=== PATIENT | male | born 1980 | race Caucasian/White ===

== ENCOUNTER 2018-07-11 15:53 | Emergency (ER) | payer SELFPAY ==
[2018-07-11] MEDS ORDERED: Lidocaine 1% w/Epinephrine 1:100K 20 ML VIAL ONE (16:13)
[2018-07-11] MEDS ORDERED: Adacel (T-DAP) 0.5 ML SYRINGE ONE (16:13)
[2018-07-11] MEDS ORDERED: Bacitracin Zinc 1 Packet ONE (17:01)
== END 2018-07-11 17:12 | disposition home or self-care (01) ==
LOC: ERS 15:53
DX: S61.412A Laceration without foreign body of left hand, initial encounter (principal); F31.9 Bipolar disorder, unspecified; F17.210 Nicotine dependence, cigarettes, uncomplicated; Z23 Encounter for immunization; Z79.899 Other long term (current) drug therapy; W25.XXXA Contact with sharp glass, initial encounter
CPT/HCPCS: 12001; 90471; 90715; J2001

== ENCOUNTER 2019-08-29 23:45 | Emergency (ER) | payer SELFPAY ==
[2019-08-30 00:08] LABS: #Eosinphils 0.1 thou/uL (0.0-0.7); #Lymphocytes 2.9 thou/uL (1.20-3.40); #Monocytes 0.5 thou/uL (0.11-0.59); #Neutrophils 3.5 thou/uL (1.40-6.50); %Basophils 0.7 % (0.0-1.0); %Eosinophils 1.6 % (0.0-10.0); %Lymphocytes 40.5 % (21.0-51.0); %Neutrophils 50.2 % (42.0-75.0); Hemoglobin 16.5 g/dL (14.0-18.0); Mean Corpuscular HGB CONC 33.5 g/dL (32.0-36.0); Mean Corpuscular Volume 95.6 fL (78.0-98.0); Mean Platelet Volume 8.9 fL (7.4-10.4); Platelet Count 131 thou/uL (130-400); RBC Distribution Width 11.2 % (11.5-14.5); Red Blood Cell (RBC) Count 5.15 mill/uL (4.70-6.10)
[2019-08-30 00:29] LABS: Acetaminophen Less than 6.0 mcg/mL (10.0-30.0); Alcohol Less than 10 mg/dL (Less than 10); Salicylate Less than 8.0 mg/dL (15.0-30.0)
[2019-08-30 00:30] LABS: ALT (SGPT) 25 U/L (8-55); AST (SGOT) 46 U/L (5-34); Albumin 4.1 g/dL (3.5-5.0); Alkaline Phosphatase 75 U/L (40-110); Anion Gap 11 mmol/L (10-20); BUN (Urea Nitrogen) 17 mg/dL (8.9-20.6); Bilirubin, Total 0.4 mg/dL (0.2-1.2); Calc. Creatinine Clearance 0 mL/min (70-130); Calcium 9.3 mg/dL (7.8-10.44); Carbon Dioxide 32 mmol/L (22-29); Chloride 100 mmol/L (98-107); Estimated GFR-MDRD 72; Globulin 3.4 g/dL (2.4-3.5); Glucose 126 mg/dL (70-105); Potassium 3.6 mmol/L (3.5-5.1); Protein, Total 7.5 g/dL (6.0-8.3); Sodium 139 mmol/L (136-145)
[2019-08-30 02:52] LABS: Amphetamine Detected (NotDetected); Cocaine Metabolite Screen Not Detected (NotDetected); Medtox Reader # READER 1; Methamphetamine Detected (NotDetected); Opiate Screen Not Detected (NotDetected); Phencyclidine (PCP) Not Detected (NotDetected); THC/Cannabinoid Screen Detected (NotDetected)
[2019-08-30 02:53] LABS: Barbiturates Screen Not Detected (NotDetected); Benzodiazepine Screen Not Detected (NotDetected); Medtox Control Line Valid? VALID (VALID); Methadone Not Detected (NotDetected); Oxycodone Screen Not Detected (NotDetected); Tricyclic Screen Not Detected (NotDetected)
[2019-08-30] MEDS ORDERED: Nicotine 14 MG PATCH ONE (18:25)
== END 2019-09-01 16:04 | disposition home or self-care (01) ==
LOC: ERS 23:45
DX: F15.10 Other stimulant abuse, uncomplicated (principal); F31.9 Bipolar disorder, unspecified; F17.210 Nicotine dependence, cigarettes, uncomplicated; Z79.899 Other long term (current) drug therapy
CPT/HCPCS: 36415; 80053; 80306; 80307; 84443; 85025; 99285

== ENCOUNTER 2021-03-18 18:44 | Emergency (ER) | payer SELFPAY ==
[2021-03-18 20:48] LABS: Hemoglobin 9.7 g/dL (14.0-18.0); Mean Corpuscular HGB CONC 28.2 g/dL (32.0-36.0); Mean Corpuscular Volume 99.2 fL (78.0-98.0); RBC Distribution Width 11.3 % (11.5-14.5); Red Blood Cell (RBC) Count 3.44 mill/uL (4.70-6.10)
[2021-03-18 20:52] LABS: ALT (SGPT) 32 U/L (8-55); AST (SGOT) 28 U/L (5-34); Alkaline Phosphatase 78 U/L (40-110); Anion Gap 10 mmol/L (10-20); BUN (Urea Nitrogen) 19 mg/dL (8.9-20.6); Bilirubin, Total 0.6 mg/dL (0.2-1.2); Calc. Creatinine Clearance 0 mL/min (70-130); Calcium 9.8 mg/dL (7.8-10.44); Carbon Dioxide 28 mmol/L (22-29); Chloride 104 mmol/L (98-107); Globulin 3.3 g/dL (2.4-3.5); Glucose 67 mg/dL (70-105); Magnesium 2.1 mg/dL (1.6-2.6); Potassium 4.6 mmol/L (3.5-5.1); Protein, Total 7.3 g/dL (6.0-8.3); Sodium 137 mmol/L (136-145)
[2021-03-18 21:07] LABS: #Eosinphils 0.2 thou/uL (0.0-0.7); #Lymphocytes 1.2 thou/uL (1.20-3.40); #Monocytes 0.5 thou/uL (0.11-0.59); #Neutrophils 3.3 thou/uL (1.40-6.50); %Basophils 0.6 % (0.0-1.0); %Eosinophils 3.2 % (0.0-10.0); %Lymphocytes 22.5 % (21.0-51.0); %Monocytes 9.9 % (0.0-10.0); %Neutrophils 63.8 % (42.0-75.0); Mean Platelet Volume 7.4 fL (7.4-10.4); Platelet Count 172 thou/uL (130-400); RBC Morphology Normal; White Blood Cell (WBC) Count 5.2 thou/uL (4.8-10.8)
[2021-03-18 21:16] LABS: Bacteria/HPF None Seen HPF (None Seen); Bilirubin Negative (Negative); Blood, Urine Trace (Negative); Clarity Clear (Clear); Glucose, Urine (Dipstick) Normal (Negative); Ketone, Urine Negative (Negative); Leukocyte Negative Leu/uL (Negative); Nitrite Negative (Negative); Protein, Urine (Dipstick) 70 mg/dL (Neg-Trace); Squamous Epithelial 0-3 HPF (0-3); Urobilinogen Normal mg/dL (Less than 2); WBC/HPF 0-3 HPF (0-3); pH, Urine 5.5 (5.0-9.0)
== END 2021-03-18 22:51 | disposition home or self-care (01) ==
LOC: ERS 18:44
DX: D64.9 Anemia, unspecified (principal); F17.210 Nicotine dependence, cigarettes, uncomplicated
CPT/HCPCS: 36415; 80053; 81003; 81015; 83735; 84443; 85025; 99284

== ENCOUNTER 2021-11-26 02:40 | Emergency (ER) | payer SELFPAY ==
[2021-11-26 03:16] LABS: #Eosinphils 0.3 thou/uL (0.0-0.7); #Monocytes 0.9 thou/uL (0.11-0.59); #Neutrophils 6.7 thou/uL (1.40-6.50); %Basophils 0.4 % (0.0-1.0); %Eosinophils 3.5 % (0.0-10.0); %Lymphocytes 20.4 % (21.0-51.0); %Monocytes 8.9 % (0.0-10.0); %Neutrophils 66.9 % (42.0-75.0); Hemoglobin 13.7 g/dL (14.0-18.0); Mean Corpuscular HGB CONC 34.6 g/dL (32.0-36.0); Mean Corpuscular Volume 98.3 fL (78.0-98.0); Platelet Count 188 thou/uL (130-400); RBC Distribution Width 11.4 % (11.5-14.5); Red Blood Cell (RBC) Count 4.04 mill/uL (4.70-6.10); White Blood Cell (WBC) Count 9.9 thou/uL (4.8-10.8)
[2021-11-26 03:36] LABS: ALT (SGPT) 20 U/L (8-55); AST (SGOT) 24 U/L (5-34); Albumin 3.5 g/dL (3.5-5.0); Alkaline Phosphatase 94 U/L (40-110); Anion Gap 11 mmol/L (10-20); BUN (Urea Nitrogen) 19 mg/dL (8.9-20.6); Bilirubin, Total 0.3 mg/dL (0.2-1.2); Calc. Creatinine Clearance 0 mL/min (70-130); Calcium 8.9 mg/dL (7.8-10.44); Carbon Dioxide 29 mmol/L (22-29); Chloride 102 mmol/L (98-107); Globulin 2.6 g/dL (2.4-3.5); Glucose 103 mg/dL (70-105); Potassium 4.5 mmol/L (3.5-5.1); Protein, Total 6.1 g/dL (6.0-8.3); Sodium 137 mmol/L (136-145)
[2021-11-26 03:57] LABS: Bilirubin Negative (Negative); Blood, Urine Negative (Negative); Clarity Turbid (Clear); Glucose, Urine (Dipstick) Normal (Negative); Ketone, Urine Negative (Negative); Leukocyte Negative Leu/uL (Negative); Nitrite Negative (Negative); Protein, Urine (Dipstick) Negative (Neg-Trace); Specific Gravity, Urine 1.012 (1.002-1.036); Urobilinogen Normal mg/dL (Less than 2)
== END 2021-11-26 05:10 | disposition home or self-care (01) ==
LOC: ERS 02:40
DX: R10.9 Unspecified abdominal pain (principal); F17.210 Nicotine dependence, cigarettes, uncomplicated; Z79.899 Other long term (current) drug therapy
CPT/HCPCS: 36415; 80053; 81003; 85025; 99284

== ENCOUNTER 2022-04-04 21:45 | Emergency (ER) | payer SELFPAY ==
[2022-04-04 22:45] LABS: #Eosinphils 0.3 thou/uL (0.0-0.7); #Lymphocytes 2.8 thou/uL (1.20-3.40); #Monocytes 0.7 thou/uL (0.11-0.59); #Neutrophils 5.7 thou/uL (1.40-6.50); %Basophils 0.3 % (0.0-1.0); %Eosinophils 3.1 % (0.0-10.0); %Lymphocytes 29.1 % (21.0-51.0); %Monocytes 7.7 % (0.0-10.0); %Neutrophils 59.8 % (42.0-75.0); Hemoglobin 13.5 g/dL (14.0-18.0); Mean Corpuscular HGB CONC 34.1 g/dL (32.0-36.0); Mean Corpuscular Hemoglobin 33.5 pg (27.0-31.0); Mean Platelet Volume 7.4 fL (7.4-10.4); Platelet Count 206 thou/uL (130-400); RBC Distribution Width 11.5 % (11.5-14.5); Red Blood Cell (RBC) Count 4.03 mill/uL (4.70-6.10); White Blood Cell (WBC) Count 9.6 thou/uL (4.8-10.8)
[2022-04-04 22:52] LABS: Bilirubin Negative (Negative); Blood, Urine 3+ (Negative); Clarity Turbid (Clear); Glucose, Urine (Dipstick) Normal (Negative); Ketone, Urine Negative (Negative); Leukocyte 75 Leu/uL (Negative); Nitrite Negative (Negative); Protein, Urine (Dipstick) 50 mg/dL (Neg-Trace); RBC/HPF Greater than 50 HPF (0-3); Specific Gravity, Urine 1.012 (1.002-1.036); Squamous Epithelial None Seen HPF (0-3); Urobilinogen Normal mg/dL (Less than 2); pH, Urine 6.5 (5.0-9.0)
[2022-04-04 22:54] LABS: Bacteria/HPF None Seen HPF (None Seen)
[2022-04-04 23:07] LABS: ALT (SGPT) 51 U/L (8-55); AST (SGOT) 40 U/L (5-34); Albumin 4.1 g/dL (3.5-5.0); Alkaline Phosphatase 97 U/L (40-110); Anion Gap 14 mmol/L (10-20); BUN (Urea Nitrogen) 15 mg/dL (8.9-20.6); Bilirubin, Total 0.6 mg/dL (0.2-1.2); CK (CPK) 304 U/L (30-200); Calc. Creatinine Clearance 0 mL/min (70-130); Calcium 9.5 mg/dL (7.8-10.44); Carbon Dioxide 29 mmol/L (22-29); Chloride 101 mmol/L (98-107); Estimated GFR 79; Globulin 3.2 g/dL (2.4-3.5); Glucose 105 mg/dL (70-105); Protein, Total 7.3 g/dL (6.0-8.3); Sodium 140 mmol/L (136-145)
== END 2022-04-05 00:06 | disposition home or self-care (01) ==
LOC: ERS 21:45
DX: R31.9 Hematuria, unspecified (principal); F17.210 Nicotine dependence, cigarettes, uncomplicated
CPT/HCPCS: 36415; 80053; 81003; 81015; 82550; 85025; 87086; 99283

== ENCOUNTER 2022-04-22 04:46 | Emergency (ER) | payer SELFPAY ==
[2022-04-22 05:32] LABS: #Eosinphils 0.3 thou/uL (0.0-0.7); #Lymphocytes 2.7 thou/uL (1.20-3.40); #Monocytes 0.8 thou/uL (0.11-0.59); %Basophils 0.5 % (0.0-1.0); %Eosinophils 2.6 % (0.0-10.0); %Lymphocytes 27.6 % (21.0-51.0); %Monocytes 7.9 % (0.0-10.0); %Neutrophils 61.4 % (42.0-75.0); Hemoglobin 13.1 g/dL (14.0-18.0); Mean Corpuscular HGB CONC 33.2 g/dL (32.0-36.0); Mean Corpuscular Hemoglobin 32.7 pg (27.0-31.0); Mean Corpuscular Volume 98.6 fL (78.0-98.0); Mean Platelet Volume 7.3 fL (7.4-10.4); Platelet Count 222 thou/uL (130-400); RBC Distribution Width 11.8 % (11.5-14.5); Red Blood Cell (RBC) Count 4.01 mill/uL (4.70-6.10); White Blood Cell (WBC) Count 9.8 thou/uL (4.8-10.8)
[2022-04-22 05:54] LABS: Bacteria/HPF None Seen HPF (None Seen); Bilirubin Negative (Negative); Blood, Urine 3+ (Negative); Clarity Clear (Clear); Glucose, Urine (Dipstick) Normal (Negative); Ketone, Urine Negative (Negative); Leukocyte Negative Leu/uL (Negative); Nitrite Negative (Negative); Protein, Urine (Dipstick) 30 mg/dL (Neg-Trace); Specific Gravity, Urine 1.028 (1.002-1.036); Squamous Epithelial 0-3 HPF (0-3)
[2022-04-22 05:54] LABS: ALT (SGPT) 39 U/L (8-55); AST (SGOT) 37 U/L (5-34); Albumin 3.9 g/dL (3.5-5.0); Alkaline Phosphatase 82 U/L (40-110); Anion Gap 14 mmol/L (10-20); BUN (Urea Nitrogen) 19 mg/dL (8.9-20.6); Calc. Creatinine Clearance 0 mL/min (70-130); Calcium 9.4 mg/dL (7.8-10.44); Carbon Dioxide 26 mmol/L (22-29); Chloride 102 mmol/L (98-107); Estimated GFR 85; Globulin 3.2 g/dL (2.4-3.5); Glucose 93 mg/dL (70-105); Potassium 3.9 mmol/L (3.5-5.1); Protein, Total 7.1 g/dL (6.0-8.3); Sodium 138 mmol/L (136-145)
[2022-04-22 06:05] LABS: WBC/HPF 0-3 HPF (0-3)
== END 2022-04-22 06:28 | disposition short-term general hospital (02) ==
LOC: EDBD 04:46 → ERS 04:46 → MERGE 04:46 → ERS 06:28
DX: R10.9 Unspecified abdominal pain (principal); F17.210 Nicotine dependence, cigarettes, uncomplicated; Z87.442 Personal history of urinary calculi
CPT/HCPCS: 36415; 80053; 81003; 81015; 85025; 99284

== ENCOUNTER 2022-12-16 00:15 | Emergency (ER) | payer SELFPAY ==
[2022-12-16 01:10] LABS: #Eosinphils 0.4 thou/uL (0.0-0.7); #Monocytes 0.6 thou/uL (0.11-0.59); #Neutrophils 3.6 thou/uL (1.40-6.50); %Basophils 0.6 % (0.0-1.0); %Eosinophils 5.2 % (0.0-10.0); %Lymphocytes 31.6 % (21.0-51.0); %Monocytes 8.7 % (0.0-10.0); %Neutrophils 53.8 % (42.0-75.0); Hemoglobin 14.7 g/dL (14.0-18.0); Mean Corpuscular HGB CONC 32.9 g/dL (32.0-36.0); Mean Corpuscular Hemoglobin 31.4 pg (27.0-31.0); Mean Corpuscular Volume 95.5 fl (78.0-98.0); Mean Platelet Volume 9.6 fL (7.4-10.4); Platelet Count 218 10x3/uL (130-400); Red Blood Cell (RBC) Count 4.68 mill/uL (4.70-6.10); White Blood Cell (WBC) Count 6.8 10x3/uL (4.8-10.8)
[2022-12-16 01:28] LABS: Amphetamine Detected (NotDetected); Barbiturates Screen Not Detected (NotDetected); Benzodiazepine Screen Not Detected (NotDetected); Cocaine Metabolite Screen Not Detected (NotDetected); Methadone Not Detected (NotDetected); Methamphetamine Detected (NotDetected); Opiate Screen Not Detected (NotDetected); Oxycodone Screen Not Detected (NotDetected); Phencyclidine (PCP) Not Detected (NotDetected); THC/Cannabinoid Screen Detected (NotDetected); Tricyclic Screen Not Detected (NotDetected)
[2022-12-16 01:30] LABS: Bilirubin Negative (Negative); Blood, Urine 1+ (Negative); Clarity Turbid (Clear); Glucose, Urine (Dipstick) Normal (Negative); Ketone, Urine Negative (Negative); Leukocyte 500 Leu/uL (Negative); Nitrite Negative (Negative); Protein, Urine (Dipstick) 200 mg/dL (Neg-Trace); Specific Gravity, Urine 1.024 (1.002-1.036); Squamous Epithelial None Seen HPF (0-3); Urobilinogen Normal mg/dL (Less than 2); WBC/HPF Greater than 50 HPF (0-3)
[2022-12-16 01:34] LABS: Anion Gap 14 mmol/L (10-20); BUN (Urea Nitrogen) 28 mg/dL (8.9-20.6); Calc. Creatinine Clearance 0 mL/min (70-130); Carbon Dioxide 27 mmol/L (22-29); Chloride 104 mmol/L (98-107); Potassium 4.6 mmol/L (3.5-5.1); Sodium 140 mmol/L (136-145)
[2022-12-16 01:35] LABS: ALT (SGPT) 30 U/L (8-55); AST (SGOT) 33 U/L (5-34); Acetaminophen Less than 10.0 mcg/mL (10.0-30.0); Albumin 3.9 g/dL (3.5-5.0); Alcohol Less than 10 mg/dL (Less than 10); Alkaline Phosphatase 115 U/L (40-110); Bilirubin, Total 0.2 mg/dL (0.2-1.2); Calcium 9.9 mg/dL (7.8-10.44); Estimated GFR 68; Globulin 3.8 g/dL (2.4-3.5); Glucose 115 mg/dL (70-105); Protein, Total 7.7 g/dL (6.0-8.3); Salicylate Less than 8.0 mg/dL (15.0-30.0)
[2022-12-16 01:40] LABS: Bacteria/HPF 2+ HPF (None Seen)
[2022-12-16 01:41] LABS: Calcium Oxalate Crystals 1+ HPF (None Seen)
[2022-12-16] MEDS ORDERED: Lidocaine 1% MPF 2 ML VIAL ONE (02:39)
[2022-12-16] MEDS ORDERED: cefTRIAXone (ROCEPHIN) 500 MG VIAL ONE (02:39)
== END 2022-12-16 10:09 ==
LOC: ERS 00:15
DX: R45.851 Suicidal ideations (principal); F19.10 Other psychoactive substance abuse, uncomplicated; F17.210 Nicotine dependence, cigarettes, uncomplicated
CPT/HCPCS: 36415; 80053; 80306; 80307; 81003; 81015; 84443; 85025; 87086; 96372; 99285; J0696

== ENCOUNTER 2023-05-30 22:11 | Inpatient (IN) | payer SELFPAY ==
[~2023-05-30 22:11] MED LIST: Iopamidol-370 76% 500 ML MDV (1 ML CHARGE) ONE
[2023-05-30] MEDS ORDERED: fentaNYL 50 mcg/mL 1 mL Vial ONE (22:24)
[2023-05-30] MEDS ORDERED: Midazolam HCl 2 mg/2 ml Vial ONE (22:24)
[2023-05-30 22:27] LABS: Actual Bicarbonate (HCO3a) 21.4 mEq/L (22-28); Analyzer IN Cardio ER; Base Excess (BEa) -1.2 mEq/L (-2.0 to +3.0); CO2 Tension 29.6 mmHg (35.0-45.0); Calcium, Ionized (arterial) 1.09 mmol/L (1.12-1.30); Carboxyhemoglobin (COHb) 0.2 gm% (0.0-3.0); Hematocrit-ABG 37 % (42.0-52.0); Hemoglobin (Hb) 12.6 g/dL (14.0-18.0); O2 Tension (PaO2), arterial 302.1 mmHg (80.0-100.0); Potassium - ABG Lab 3.79 mmol/L (3.70-5.30); pH, Arterial 7.477 (7.35-7.45)
[2023-05-30 22:28] LABS: Puncture Site LBA
[2023-05-30] MEDS ORDERED: Fentanyl CADD 100 ML IV SCH (22:30)
[2023-05-30 22:36] LABS: #Eosinphils 0.1 thou/uL (0.0-0.7); #Monocytes 1.2 thou/uL (0.11-0.59); #Neutrophils 10.3 thou/uL (1.40-6.50); %Basophils 0.3 % (0.0-1.0); %Eosinophils 0.7 % (0.0-10.0); %Lymphocytes 9.1 % (21.0-51.0); %Neutrophils 80.6 % (42.0-75.0); Hematocrit 34.3 % (42.0-52.0); Mean Corpuscular Hemoglobin 32.7 pg (27.0-31.0); Mean Corpuscular Volume 93.5 fl (78.0-98.0); Mean Platelet Volume 9.6 fL (7.4-10.4); Platelet Count 164 10x3/uL (130-400); Red Blood Cell (RBC) Count 3.67 mill/uL (4.70-6.10); White Blood Cell (WBC) Count 12.8 10x3/uL (4.8-10.8)
[2023-05-30 22:39] LABS: Bacteria/HPF None Seen HPF (None Seen); Bilirubin Negative (Negative); Blood, Urine Negative (Negative); CAUTI Indications for Culture Alt mental st,lethar; Clarity Clear (Clear); Glucose, Urine (Dipstick) Normal (Negative); Ketone, Urine Negative (Negative); Leukocyte Negative Leu/uL (Negative); Nitrite Negative (Negative); Protein, Urine (Dipstick) 100 mg/dL (Neg-Trace); RBC/HPF 0-3 HPF (0-3); Specific Gravity, Urine 1.021 (1.002-1.036); Squamous Epithelial 0-3 HPF (0-3); Urobilinogen Normal mg/dL (Less than 2); WBC/HPF 0-3 HPF (0-3); pH, Urine 6.5 (5.0-9.0)
[2023-05-30 22:42] LABS: Sperm/HPF 2+ HPF (None Seen)
[2023-05-30 22:43] LABS: Urine Culture Reflex No No
[2023-05-30 22:46] LABS: Amphetamine Detected (NotDetected); Barbiturates Screen Not Detected (NotDetected); Benzodiazepine Screen Not Detected (NotDetected); Cocaine Metabolite Screen Not Detected (NotDetected); Methadone Not Detected (NotDetected); Methamphetamine Detected (NotDetected); Opiate Screen Not Detected (NotDetected); Oxycodone Screen Not Detected (NotDetected); Phencyclidine (PCP) Not Detected (NotDetected); THC/Cannabinoid Screen Detected (NotDetected); Tricyclic Screen Not Detected (NotDetected)
[2023-05-30 22:53] LABS: ALT (SGPT) 18 U/L (8-55); AST (SGOT) 31 U/L (5-34); Acetaminophen Less than 10 mcg/mL (10.0-30.0); Albumin 3.6 g/dL (3.5-5.0); Alcohol Less than 10.0 mg/dL (Less than 10); Alkaline Phosphatase 65 U/L (40-110); Anion Gap 12 mmol/L (10-20); BUN (Urea Nitrogen) 19 mg/dL (8.9-20.6); Bilirubin, Total 0.5 mg/dL (0.2-1.2); Calc. Creatinine Clearance 0 mL/min (70-130); Calcium 8.1 mg/dL (7.8-10.44); Carbon Dioxide 22 mmol/L (22-29); Chloride 103 mmol/L (98-107); Estimated GFR 76; Globulin 2.1 g/dL (2.4-3.5); Glucose 144 mg/dL (70-105); Lipase 33 U/L (8-78); Potassium 3.8 mmol/L (3.5-5.1); Protein, Total 5.7 g/dL (6.0-8.3); Salicylate Less than 8.0 mg/dL (15.0-30.0); Sodium 133 mmol/L (136-145)
[2023-05-30 22:57] LABS: Troponin I 0.016 ng/mL (< 0.028)
[2023-05-31] MEDS ORDERED: Boostrix 0.5 ML (Tdap) VIAL (>/=7 yrs of age) ONE (00:01)
[2023-05-31] MEDS ORDERED: Electrolyte Replacement Protocol 1 EACH IVPB PRN (00:12)
[2023-05-31] MEDS ORDERED: Ondansetron PF 4 MG/2 ML Vial IVP PRN (00:12)
[2023-05-31] MEDS ORDERED: Ventilator Sedation Protocol 1 EACH FS SCH (00:15)
[2023-05-31] MEDS ORDERED: Morphine 2 MG/ML VIAL SLOW IVP PRN (00:30)
[2023-05-31] MEDS ORDERED: DISCONTINUE PREVIOUS NARCOTIC PAIN MEDICATIONS AND BENZODIAZEPINES FS SCH (00:30)
[2023-05-31] MEDS ORDERED: Fentanyl BOLUS 250 ML IVPB PRN (00:30)
[2023-05-31] MEDS ORDERED: Propofol BOLUS 1,000 MG/100 ML VIAL IV PRN (00:30)
[2023-05-31] MEDS ORDERED: Propofol 1,000 MG/100 ML VIAL IV ONE (00:32)
[2023-05-31] MEDS: Propofol 1,000 MG/100 ML VIAL IV PRN ×5 (00:35→17:44)
[2023-05-31] MEDS ORDERED: Dextrose 50% Abboject 50 ML SYRINGE SLOW IVP PRN (01:18)
[2023-05-31] MEDS ORDERED: Glucagon 1 MG/ML KIT IM PRN (01:18)
[2023-05-31] MEDS ORDERED: Dextrose 5% in Water 1,000 ML IV PRN (01:18)
[2023-05-31] MEDS ORDERED: Sodium Chloride 0.9% 1,000 ML IV SCH (01:45)
[2023-05-31 01:59] LABS: Lactic Acid 3.4 mmol/L (0.5-2.2)
[2023-05-31] MEDS ORDERED: Rocuronium Bromide 10 MG/ML (10ML VIAL) ONE (03:33)
[2023-05-31] MEDS ORDERED: Rocuronium Bromide 10 MG/ML (10ML VIAL) IVP SCH (03:45)
[2023-05-31] MEDS: Lorazepam 2 MG/ML VIAL SLOW IVP PRN ×7 (04:51→22:14)
[2023-05-31] MEDS: D5 1/2 NS w/10 mEq KCl 1,000 ML/1,000 ML BAG IV SCH ×3 (06:11→20:30)
[2023-05-31] MEDS ORDERED: Pantoprazole 40 MG VIAL IVP SCH (06:30)
[2023-05-31 06:35] LABS: #Neutrophils 5.9 thou/uL (1.40-6.50); %Basophils 0.3 % (0.0-1.0); %Eosinophils 0.4 % (0.0-10.0); %Lymphocytes 27.2 % (21.0-51.0); %Monocytes 10.6 % (0.0-10.0); %Neutrophils 61.2 % (42.0-75.0); Hematocrit 38.1 % (42.0-52.0); Mean Corpuscular HGB CONC 34.1 g/dL (32.0-36.0); Mean Corpuscular Hemoglobin 32.5 pg (27.0-31.0); Mean Corpuscular Volume 95.3 fl (78.0-98.0); Mean Platelet Volume 9.8 fL (7.4-10.4); Platelet Count 180 10x3/uL (130-400); RBC Distribution Width 12.4 % (11.5-14.5); White Blood Cell (WBC) Count 9.7 10x3/uL (4.8-10.8)
[2023-05-31 07:15] LABS: ALT (SGPT) 23 U/L (8-55); AST (SGOT) 62 U/L (5-34); Albumin 3.7 g/dL (3.5-5.0); Alkaline Phosphatase 69 U/L (40-110); Anion Gap 11 mmol/L (10-20); BUN (Urea Nitrogen) 17 mg/dL (8.9-20.6); Calc. Creatinine Clearance 77 mL/min (70-130); Calcium 8.8 mg/dL (7.8-10.44); Carbon Dioxide 24 mmol/L (22-29); Chloride 107 mmol/L (98-107); Estimated GFR 86; Globulin 2.1 g/dL (2.4-3.5); Glucose 77 mg/dL (70-105); Potassium 3.8 mmol/L (3.5-5.1); Protein, Total 5.8 g/dL (6.0-8.3); Sodium 138 mmol/L (136-145)
[2023-05-31] MEDS ORDERED: Bacitracin 1 PK TOP SCH (09:00)
[2023-05-31] MEDS: Bacitracin Zinc Ointment 30 gm TUBE TOP SCH ×3 (09:45→20:00)
[2023-05-31] MEDS: Aripiprazole 10 MG TAB PO SCH (09:46)
[2023-05-31] MEDS: Pantoprazole 40 MG VIAL IVP SCH (20:31)
[2023-06-01] MEDS: Propofol 1,000 MG/100 ML VIAL IV PRN ×3 (00:16→07:06)
[2023-06-01] MEDS: Lorazepam 2 MG/ML VIAL SLOW IVP PRN ×2 (01:47→05:22)
[2023-06-01] MEDS ORDERED: Acetaminophen 650 MG Suppository PR PRN (03:22)
[2023-06-01] MEDS ORDERED: Acetaminophen 325 MG TAB PER TUBE PRN (03:22)
[2023-06-01] MEDS: D5 1/2 NS w/10 mEq KCl 1,000 ML/1,000 ML BAG IV SCH (04:34)
[2023-06-01 06:52] LABS: Actual Bicarbonate (HCO3a) 24.2 mEq/L (22-28); Base Excess (BEa) -0.2 mEq/L (-2.0 to +3.0); CO2 Tension 39.1 mmHg (35.0-45.0); Hematocrit-ABG 41 % (42.0-52.0); Hemoglobin (Hb) 13.9 g/dL (14.0-18.0); O2 Tension (PaO2), arterial 90.9 mmHg (80.0-100.0); Potassium - ABG Lab 3.81 mmol/L (3.70-5.30)
[2023-06-01 06:56] LABS: Puncture Site RBA
[2023-06-01] MEDS: Aripiprazole 10 MG TAB PO SCH (07:55)
[2023-06-01] MEDS: Bacitracin Zinc Ointment 30 gm TUBE TOP SCH ×3 (07:56→21:05)
[2023-06-01] MEDS: Pantoprazole 40 MG VIAL IVP SCH ×2 (07:56→21:05)
[2023-06-01 08:01] LABS: Albumin 3.5 g/dL (3.5-5.0)
[2023-06-01 08:03] LABS: Calcium 8.6 mg/dL (7.8-10.44); Chloride 106 mmol/L (98-107); Potassium 5.2 mmol/L (3.5-5.1); Sodium 134 mmol/L (136-145)
[2023-06-01 08:04] LABS: Globulin 3.1 g/dL (2.4-3.5); Glucose 144 mg/dL (70-105); Protein, Total 6.6 g/dL (6.0-8.3)
[2023-06-01 08:05] LABS: Anion Gap 14 mmol/L (10-20); Carbon Dioxide 19 mmol/L (22-29)
[2023-06-01 08:06] LABS: Bilirubin, Total 0.7 mg/dL (0.2-1.2)
[2023-06-01 08:07] LABS: Alkaline Phosphatase 73 U/L (40-110); Calc. Creatinine Clearance 66 mL/min (70-130); Estimated GFR 75
[2023-06-01 08:08] LABS: BUN (Urea Nitrogen) 12 mg/dL (8.9-20.6)
[2023-06-01 08:09] LABS: AST (SGOT) 84 U/L (5-34)
[2023-06-01 08:10] LABS: ALT (SGPT) 32 U/L (8-55)
[2023-06-01] MEDS ORDERED: DC Sedation Protocol FS ONE (09:07)
[2023-06-01] MEDS: Dexmedetomidine 400 MCG, Admixture Fee 1 EACH in Sodium Chloride 0.9% 96 ML IVPB SCH ×2 (14:29→17:56)
[2023-06-01] MEDS: Sodium Chloride 0.9% 1,000 ML IV SCH (18:23)
[2023-06-02] MEDS: Sodium Chloride 0.9% 1,000 ML IV SCH ×3 (01:17→23:51)
[2023-06-02] MEDS: Dexmedetomidine 400 MCG, Admixture Fee 1 EACH in Sodium Chloride 0.9% 96 ML IVPB SCH ×2 (01:17→05:13)
[2023-06-02 06:38] LABS: ALT (SGPT) 53 U/L (8-55); AST (SGOT) 143 U/L (5-34); Albumin 3.5 g/dL (3.5-5.0); Alkaline Phosphatase 76 U/L (40-110); Anion Gap 12 mmol/L (10-20); BUN (Urea Nitrogen) 13 mg/dL (8.9-20.6); Bilirubin, Total 0.9 mg/dL (0.2-1.2); Calc. Creatinine Clearance 98 mL/min (70-130); Calcium 9.2 mg/dL (7.8-10.44); Carbon Dioxide 24 mmol/L (22-29); Chloride 110 mmol/L (98-107); Estimated GFR 111; Globulin 2.4 g/dL (2.4-3.5); Glucose 99 mg/dL (70-105); Potassium 4.4 mmol/L (3.5-5.1); Protein, Total 5.9 g/dL (6.0-8.3); Sodium 142 mmol/L (136-145)
[2023-06-02] MEDS ORDERED: Acetaminophen 325 MG TAB PO PRN (06:56)
[2023-06-02] MEDS: Aripiprazole 10 MG TAB PO SCH (09:31)
[2023-06-02] MEDS: Pantoprazole 40 MG VIAL IVP SCH (09:34)
[2023-06-02] MEDS: Bacitracin Zinc Ointment 30 gm TUBE TOP SCH ×3 (09:34→22:36)
[2023-06-02] MEDS ORDERED: Ziprasidone 20 MG VIAL IM SCH (14:30)
[2023-06-03] MEDS ORDERED: FLU VACC QS2023-24(6MOS UP)/PF 60 MCG/0.5 ML SYRINGE IM ONE (09:00)
[2023-06-03] MEDS: Aripiprazole 10 MG TAB PO SCH (10:19)
[2023-06-03] MEDS: Pantoprazole 40 MG VIAL IVP SCH (10:21)
[2023-06-03] MEDS: Bacitracin Zinc Ointment 30 gm TUBE TOP SCH ×3 (10:25→20:04)
[2023-06-03] MEDS: Sodium Chloride 0.9% 1,000 ML IV SCH ×2 (11:08→19:25)
[2023-06-03] MEDS: Nicotine 21 MG PATCH TD SCH (12:10)
[2023-06-04] MEDS: Sodium Chloride 0.9% 1,000 ML IV SCH ×3 (05:24→21:26)
[2023-06-04] MEDS: Bacitracin Zinc Ointment 30 gm TUBE TOP SCH ×3 (08:20→19:34)
[2023-06-04] MEDS: Aripiprazole 10 MG TAB PO SCH (08:20)
[2023-06-04] MEDS: Nicotine 21 MG PATCH TD SCH (08:20)
[2023-06-04] MEDS: Pantoprazole 40 MG VIAL IVP SCH (08:21)
[2023-06-04 15:17] VITALS: BMI 18.2
[2023-06-04] MEDS ORDERED: Melatonin 3 MG TAB PO PRN (17:08)
[2023-06-05 02:32] VITALS: BP 132/75; TEMP 98
[2023-06-05] MEDS: Nicotine 21 MG PATCH TD SCH (08:03)
[2023-06-05] MEDS: Aripiprazole 10 MG TAB PO SCH (08:03)
[2023-06-05] MEDS: Bacitracin Zinc Ointment 30 gm TUBE TOP SCH (08:03)
[2023-06-05] MEDS: Pantoprazole 40 MG VIAL IVP SCH (08:41)
== END 2023-06-05 11:53 | DRG 917 ==
LOC: ERS 22:11 → EEVIPCON 22:11 → CCU 22:15 → T4-A 06-02 19:34
PROVIDERS: ADMIT Family Medicine; ATTEND Family Medicine
PROC: 4A133R1 Monitoring of Arterial Saturation, Peripheral, Percutaneous Approach (ICD-10-PCS; principal; 2023-05-30)
PROC: 0D9670Z Drainage of Stomach with Drainage Device, Via Natural or Artificial Opening (ICD-10-PCS; 2023-05-30)
PROC: 3E0234Z Introduction of Serum, Toxoid and Vaccine into Muscle, Percutaneous Approach (ICD-10-PCS; 2023-05-31)
PROC: 5A1945Z Respiratory Ventilation, 24-96 Consecutive Hours (ICD-10-PCS; 2023-05-31)
DX: T43.651A Poisoning by methamphetamines accidental (unintentional), initial encounter (principal); G92.8 Other toxic encephalopathy; J96.00 Acute respiratory failure, unspecified whether with hypoxia or hypercapnia; E87.1 Hypo-osmolality and hyponatremia; N13.30 Unspecified hydronephrosis; Z59.00 Homelessness unspecified; E87.3 Alkalosis; F31.9 Bipolar disorder, unspecified; F17.210 Nicotine dependence, cigarettes, uncomplicated; S00.81XA Abrasion of other part of head, initial encounter; S00.01XA Abrasion of scalp, initial encounter; X58.XXXA Exposure to other specified factors, initial encounter; D72.829 Elevated white blood cell count, unspecified; R73.9 Hyperglycemia, unspecified; F15.129 Other stimulant abuse with intoxication, unspecified; B19.20 Unspecified viral hepatitis C without hepatic coma; Z78.1 Physical restraint status; Z23 Encounter for immunization; Z79.899 Other long term (current) drug therapy; Z98.890 Other specified postprocedural states
CPT/HCPCS: 36415; 36416; 36600; 43762; 51702; 70450; 71045; 71260; 72125; 74177; 80053; 80306; 80307; 81001; 82550; 82805; 83605; 83690; 84484; 85025; 87040; 90471; 90686; 90715; 93005; 94002; 94003; 96365; 96366; 96375; 96376; 97139; C9113; G0008; J1650; J2060; J2250; J2704; J3010; J3480; J3486; J3490; J7050; Q9967

== ENCOUNTER 2024-01-15 09:34 | Emergency (ER) | payer SELFPAY ==
[2024-01-15] MEDS ORDERED: Acetaminophen 500 MG TAB ONE (10:08)
== END 2024-01-15 10:40 | disposition home or self-care (01) ==
LOC: ERS 09:34
DX: R07.81 Pleurodynia (principal); F17.210 Nicotine dependence, cigarettes, uncomplicated
CPT/HCPCS: 71045